=== PATIENT | female | born 1950 | race Hispanic/Latino ===

== ENCOUNTER 2018-07-10 13:49 | Emergency (ER) | payer MEDICARE ==
[~2018-07-10] VITALS: Ht 162.6 cm; Wt 79.8 kg
--- OUTSIDE RECORDS SUMMARY | 2018-07-10 13:51 | XMS REPORT ---
Author Author [facility] Address Unknown Phone Unavailable Care Team Providers Care Biomathematician Name Role Phone Unavailable Unavailable Problems This patient has no known problems. Allergies, Adverse Reactions, Alerts This patient has no known allergies or adverse reactions. Medications This patient has no known medications. Encounters Start Date/Time End Date/Time Encounter Type Admission Type Attending [facility] Care Department Encounter ID 2018-07-24 00:00:00 2018-07-24 00:00:[address] [facility] [id number] 2018-07-22 00:00:00 2018-07-22 00:00:[address] [facility] [id number] 2018-07-10 00:00:00 2018-07-10 00:00:[address] [facility] [id number] 2018-07-10 00:00:00 2018-07-10 00:00:[address] [facility] [id number] 2018-06-26 00:00:00 2018-06-26 00:00:[address] [facility] [id number] 2018-06-24 00:00:00 2018-06-24 00:00:[address] [facility] [id number] 2018-06-21 00:00:00 2018-06-21 00:00:[address] [facility] [id number] 2018-06-17 00:00:00 2018-06-17 00:00:[address] [facility] [id number] 2018-06-17 00:00:00 2018-06-17 00:00:[address] [facility] [id number] 2018-06-14 00:00:00 2018-06-14 00:00:[address] [facility] [id number] 2018-06-12 00:00:00 2018-06-12 00:00:[address] [facility] [id number] 2018-06-05 00:00:00 2018-06-05 00:00:[address] [facility] [id number] 2018-06-05 00:00:00 2018-06-05 00:00:[address] [facility] [id number] 2018-05-17 10:11:44 2018-05-17 10:11:[address] [facility] [id number] 2018-05-15 13:19:55 2018-05-15 13:19:[address] [facility] [id number] 2018-05-15 13:09:23 2018-05-15 13:09:[address] [facility] [id number] 2018-05-13 00:00:00 2018-05-13 00:00:[address] [facility] [id number] 2018-05-01 14:56:29 2018-05-01 14:56:[address] [facility] [id number] 2018-04-29 00:00:00 2018-04-29 00:00:[address] [facility] [id number] 2018-04-29 00:00:00 2018-04-29 00:00:[address] [facility] [id number] 2018-04-23 13:48:05 2018-04-23 13:48:[address] [facility] [id number] 2018-04-17 00:00:00 2018-04-17 00:00:[address] [facility] [id number] 2018-04-03 13:05:25 2018-04-03 13:05:[address] [facility] [id number] 2018-04-03 12:28:56 2018-04-03 12:28:[address] [facility] [id number] 2018-03-29 14:17:22 2018-03-29 14:17:[address] [facility] [id number] 2018-03-06 00:00:00 2018-03-06 00:00:[address] [facility] [id number] 2018-03-06 00:00:00 2018-03-06 00:00:[address] [facility] [id number] 2018-02-19 12:39:39 2018-02-19 12:39:[address] [facility] [id number] 2018-02-14 00:00:00 2018-02-14 00:00:[address] [facility] [id number] 2018-02-14 00:00:00 2018-02-14 00:00:[address] [facility] [id number] 2018-02-06 00:00:00 2018-02-06 00:00:[address] [facility] [id number] 2018-02-06 00:00:00 2018-02-06 00:00:[address] [facility] [id number] 2018-01-09 09:09:17 2018-01-09 09:09:17 Outpatient [facility] [id number] 2018-01-09 08:41:50 2018-01-09 08:41:[address] [facility] [id number] 2018-01-02 11:27:14 2018-01-02 11:27:[address] [facility] [id number] 2018-01-02 00:00:00 2018-01-02 00:00:00 [facility]patient [facility] [id number] 2017-12-18 00:00:00 2017-12-18 00:00:[address] [facility] [id number] 2017-12-13 00:00:00 2017-12-13 00:00:00 Outpatient [facility] [id number] 2017-12-12 13:40:20 2017-12-12 13:40:[address] [facility] [id number] 2017-12-12 12:59:23 2017-12-12 12:59:[address] [facility] [id number] 2017-12-12 00:00:00 2017-12-12 00:00:[address] [facility] [id number] 2017-12-06 00:00:00 2017-12-06 00:00:[address] [facility] [id number] 2017-12-05 00:00:00 2017-12-05 00:00:[address] [facility] [id number] 2017-12-05 00:00:00 2017-12-05 00:00:[address] [facility] [id number] 2017-12-05 00:00:00 2017-12-05 00:00:[address] [facility] [id number] 2017-11-14 15:28:02 2017-11-14 15:28:[address] [facility] [id number] 2017-11-14 13:36:55 2017-11-14 13:36:[address] [facility] [id number] 2017-11-07 00:00:00 2017-11-07 00:00:00 [facility]patient [facility] [id number] 2017-11-07 00:00:00 2017-11-07 00:00:00 Outpatient [facility] [id number] 2017-10-25 00:00:00 2017-10-25 00:00:00 Outpatient [facility] [id number] 2017-10-25 00:00:00 2017-10-25 00:00:[address] [facility] [id number] 2017-10-10 13:07:48 2017-10-10 13:07:[address] [facility] [id number] 2017-10-10 12:05:35 2017-10-10 12:05:[address] [facility] [id number] 2017-10-03 00:00:00 2017-10-03 00:00:[address] [facility] [id number] 2017-10-03 00:00:00 2017-10-03 00:00:00 Outpatient [facility] [id number] 2017-10-03 00:00:00 2017-10-03 00:00:[address] [facility] [id number] 2017-10-02 07:58:00 2017-10-02 07:58:[address] [facility] [id number] 2017-09-12 13:43:21 2017-09-12 13:43:[address] [facility] [id number] 2017-09-12 13:06:43 2017-09-12 13:06:[address] [facility] [id number] 2017-09-05 15:43:15 2017-09-05 15:43:[address] [facility] [id number] 2017-09-05 12:22:03 2017-09-05 12:22:[address] [facility] [id number] 2017-08-15 13:24:05 2017-08-15 13:24:[address] [facility] [id number] 2017-08-15 12:58:43 2017-08-15 12:58:[address] [facility] [id number] 2017-08-08 12:28:59 2017-08-08 12:28:[address] [facility] [id number] 2017-08-08 11:07:49 2017-08-08 11:07:[address] [facility] [id number] 2017-08-08 00:00:00 2017-08-08 00:00:[address] [facility] [id number] 2017-07-18 00:00:00 2017-07-18 00:00:[address] [facility] [id number] 2017-07-18 00:00:00 2017-07-18 00:00:[address] [facility] [id number] 2017-07-11 14:01:26 2017-07-11 14:01:26 [facility]patient [facility] [id number] 2017-07-11 13:01:31 2017-07-11 13:01:31 Outpatient [facility] [id number] 2017-06-25 00:00:00 2017-06-25 00:00:00 Outpatient [facility] [id number] 2017-06-25 00:00:00 2017-06-25 00:00:00 Outpatient [facility] [id number] 2017-06-20 13:56:03 2017-06-20 13:56:03 Outpatient [facility] [id number] 2017-06-20 12:54:53 2017-06-20 12:54:53 Outpatient [facility] [id number] 2017-06-01 00:00:00 2017-06-01 00:00:00 Outpatient [facility] [id number] 2017-05-28 15:43:20 2017-05-28 15:43:20 Outpatient [facility] [id number] 2017-05-28 12:46:55 2017-05-28 12:46:55 Outpatient [facility] [id number] 2017-05-23 11:56:40 2017-05-23 11:56:40 Outpatient [facility] [id number] 2017-05-23 11:22:25 2017-05-23 11:22:25 Outpatient [facility] [id number] 2017-05-22 11:53:09 2017-05-22 11:53:09 Outpatient [facility] [id number] 2017-05-17 00:00:00 2017-05-17 00:00:00 Outpatient [facility] [id number] 2017-05-08 00:00:00 2017-05-08 00:00:00 Outpatient [facility] [id number] 2017-05-08 00:00:00 2017-05-08 00:00:00 [facility]patient [facility] [id number] 2017-05-03 00:00:00 2017-05-03 00:00:00 Outpatient [facility] [id number] 2017-05-03 00:00:00 2017-05-03 00:00:00 Outpatient [facility] [id number] 2017-04-25 14:06:45 2017-04-25 14:06:45 Outpatient [facility] [id number] 2017-04-25 12:00:37 2017-04-25 12:00:37 Outpatient [facility] [id number] 2017-04-12 00:00:00 2017-04-12 00:00:[address] [facility] [id number] 2017-04-12 00:00:00 2017-04-12 00:00:[address] [facility] [id number] 2017-03-28 16:22:57 2017-03-28 16:22:[address] [facility] [id number] 2017-03-28 14:46:33 2017-03-28 14:46:[address] [facility] [id number] 2017-03-28 00:00:00 2017-03-28 00:00:[address] [facility] [id number] 2017-03-28 00:00:00 2017-03-28 00:00:[address] [facility] [id number] 2017-03-22 13:13:25 2017-03-22 13:13:[address] [facility] [id number] 2017-03-21 00:00:00 2017-03-21 00:00:[address] [facility] [id number] 2017-03-12 00:00:00 2017-03-12 00:00:[address] [facility] [id number] 2017-02-21 08:57:10 2017-02-21 08:57:[address] [facility] [id number] 2017-02-21 08:25:02 2017-02-21 08:25:[address] [facility] [id number] 2017-02-06 00:00:00 2017-02-06 00:00:[address] [facility] [id number] 2017-01-24 14:10:56 2017-01-24 14:10:[address] [facility] [id number] 2017-01-24 13:39:35 2017-01-24 13:39:[address] [facility] [id number] 2017-01-18 15:45:22 2017-01-18 15:45:[address] [facility] [id number] 2017-01-18 14:27:45 2017-01-18 14:27:[address] [facility] [id number] 2017-01-18 00:00:00 2017-01-18 00:00:[address] [facility] [id number] 2017-01-10 08:33:22 2017-01-10 08:33:[address] [facility] [id number] 2016-12-27 12:42:05 2016-12-27 12:42:[address] [facility] [id number] 2016-12-01 08:12:11 2016-12-01 08:12:[address] [facility] [id number] 2016-11-29 12:44:16 2016-11-29 12:44:[address] [facility] [id number] 2016-11-29 00:00:00 2016-11-29 00:00:[address] [facility] [id number] 2016-11-22 07:53:18 2016-11-22 07:53:[address] [facility] [id number] 2016-11-22 07:49:05 2016-11-22 07:49:[address] [facility] [id number] 2016-10-25 14:33:59 2016-10-25 14:33:[address] [facility] [id number] 2016-10-25 12:44:52 2016-10-25 12:44:[address] [facility] [id number] 2016-10-20 13:58:57 2016-10-20 13:58:[address] [facility] [id number] 2016-10-18 11:37:36 2016-10-18 11:37:[address] [facility] [id number] 2016-10-18 00:00:00 2016-10-18 00:00:[address] [facility] [id number] 2016-09-28 00:00:00 2016-09-28 00:00:[address] [facility] [id number] 2016-04-18 14:32:09 2016-04-18 14:32:[address] [facility] [id number] 2016-04-18 12:28:37 2016-04-18 12:28:[address] [facility] [id number]
[2018-07-10] MEDS ORDERED: SODIUM CHLORIDE 0.9% 1000ML 1,000 ML IV ONE ×2 (14:15→16:15)
[2018-07-10 14:16] LABS: EOSINOPHILS % 0.2 % (0.0-6.0); HEMATOCRIT 33.1 % (34.2-44.1); HEMOGLOBIN 10.8 g/dL (12.0-16.0); LYMPHOCYTES # (AUTO) 0.8 (1.0-3.2); LYMPHOCYTES % 18.7 % (18.0-39.1); MEAN CORPUSCULAR HGB CONC 32.6 g/dL (31-35); MEAN CORPUSCULAR VOLUME 107.1 fL (81-99); MONOCYTES # (AUTO) 0.3 (0.2-0.8); MONOCYTES % 6.2 % (4.4-11.3); NEUTROPHILS % 73.7 % (38.7-80.0); PLATELET COUNT 124 x10e3/uL (140-360); RED BLOOD COUNT 3.09 x10e6/uL (3.6-5.1); RED CELL DISTRIBUTION WIDTH 15.6 % (11.7-14.4)
[2018-07-10 14:32] LABS: ALBUMIN 3.1 g/dL (3.5-5.0); ANION GAP 14.6 mmol/L (8-16); CALCIUM 8.8 mg/dL (8.4-10.2); CREATININE, SERUM 1.95 mg/dL (0.57-1.11); POTASSIUM 3.6 mmol/L (3.5-5.1)
--- NOTE | 2018-07-10 15:56 | Diagnostic Imaging Report ---
Exam: Abdominal film Clinical History: Abdominal pain, anorexia Comparison: None. DISCUSSION: The bowel gas pattern shows no dilated, air-filled loops of bowel. Gas and fecal material is noted throughout the large bowel. A conglomerate of calcifications projects over the midline pelvis, measuring 11 cm transverse x 6.4 cm craniocaudal in axial dimension. 7 mm oblong calcification projects over the left renal shadow. Additional calcifications project over the bilateral iliac wings which may represent bone islands. Regional skeletal structures are intact with multilevel degenerative disc changes of the thoracolumbar spine. Bilateral degenerative arthrosis of the hips. IMPRESSION: Nonobstructive bowel gas pattern. Conglomerate heterogeneous calcifications projecting over the pelvis are of uncertain etiology. Considerations include a large degenerated uterine fibroid, with bladder calculi or bowel contents felt to be less likely. Signed by: Dr. Alireza Loza M.D. on 07/10/2018 3:53 PM
[2018-07-10] MEDS ORDERED: NIFEDIPINE ER30 M1 PO (16:01)
[2018-07-10] MEDS ORDERED: ONE DAILY PLUS1 EAC1 PO (16:01)
[2018-07-10] MEDS ORDERED: MIRTAZAPINE30 MG PO (16:01)
[2018-07-10] MEDS ORDERED: ATORVASTATIN CA20 MG PO (16:01)
[2018-07-10] MEDS ORDERED: METOPROLOL SUCC50 MG PO (16:01)
[2018-07-10] MEDS ORDERED: HYDRALAZINE HCL25 MG PO (16:01)
[2018-07-10] MEDS ORDERED: FUROSEMIDE40 MG PO (16:01)
[2018-07-10] MEDS ORDERED: LISINOPRIL10 MG PO (16:01)
[2018-07-10 16:10] LABS: ANISOCYTOSIS SLIGHT; EOSINOPHILS % (MANUAL) 2 % (0-7); LYMPHOCYTES % (MANUAL) 12 % (19-48); MONOCYTES % (MANUAL) 5 % (3.4-9.0); NEUTROPHILS % (MANUAL) 71 % (40-74); PLATELET ESTIMATE ADEQUATE; PLATELET MORPHOLOGY COMMENT FEW LARGE; RBC MORPHOLOGY COMMENT NORMAL
--- NOTE | 2018-07-10 16:15 | NUR ---
speciman cup for ua at bedside. patient reported that she did not feel she needs to void at this time. informed er md, second litre of NS ordered.
[2018-07-10 16:33] LABS: CREATINE KINASE MB 0.5 ng/mL (0-5.0)
[2018-07-10 18:12] LABS: BILIRUBIN,URINE 1+ (NEGATIVE); CLARITY,URINE SL CLOUDY (CLEAR); COLOR,URINE YELLOW (YELLOW); KETONES,URINE TRACE (NEGATIVE); LEUKOCYTE ESTERASE ,URINE 1+ (NEGATIVE); NITRITE,URINE NEGATIVE (NEGATIVE); PROTEIN,URINE DIPSTICK NEGATIVE (NEGATIVE); URINE UROBILINOGEN 0.2 mg/dL (0.2 - 1)
[2018-07-10 18:28] LABS: AMORPHOUS SEDIMENT,URINE FEW (FEW); BACTERIA,URINE MANY /HPF; EPITHELIAL CELLS,URINE MANY /LPF; RBC,URINE 0-5 /HPF (0-5)
== END 2018-07-10 18:59 | disposition home or self-care (01) ==
LOC: ER 13:49
DX: N39.0 Urinary tract infection, site not specified (principal); R53.1 Weakness; R11.2 Nausea with vomiting, unspecified; R19.7 Diarrhea, unspecified; I10 Essential (primary) hypertension; E11.9 Type 2 diabetes mellitus without complications; Z85.3 Personal history of malignant neoplasm of breast; Z85.830 Personal history of malignant neoplasm of bone; Z86.73 Personal history of transient ischemic attack (TIA), and cerebral infarction without residual deficits
CPT/HCPCS: 36415; 74018; 80053; 81001; 82550; 82553; 83690; 84100; 84484; 85025; 87400; 93005; 99284; J7030